=== PATIENT | male | born 1985 | race Two or more races ===

== ENCOUNTER 2016-04-21 01:00 | Emergency (ER) | payer SELFPAY ==
[~2016-04-21] VITALS: Ht 165.1 cm; Wt 54.4 kg
[2016-04-21 01:12] VITALS: BP 174/77
[2016-04-21] MEDS ORDERED: IV NORMAL SALINE 1000ML BAG 1,000 ML IV SCH (01:30)
[2016-04-21 01:53] LABS: BILIRUBIN,URINE NEGATIVE (NEG); GLUCOSE,URINE NEGATIVE (NEG); NITRITE,URINE NEGATIVE (NEG); PH,URINE 6.5; PROTEIN,URINE NEGATIVE (NEG-TRACE); UROBILINOGEN,URINE 0.2 mg/dL (0.2 mg/dL)
[2016-04-21 01:54] LABS: BASO % 0 % (0-3); EOS % 1 % (0-3); HEMOGLOBIN 12.2 g/dL (13.0-17.5); LYMPH # 3.4 x10^3/uL (1.0-4.8); LYMPH % 30 % (24-48); MEAN CORPUSCULAR HEMOGLOBIN 33 pg (25-35); MEAN CORPUSCULAR HGB CONC 33 g/dL (31-37); MEAN CORPUSCULAR VOLUME 99 fL (79-100); MONO % 10 % (0-9); NEUT % 59 % (31-73); PLATELET COUNT 221 x10^3/uL (140-400); RED BLOOD COUNT 3.74 x10^6/uL (4.30-5.70); RED CELL DISTRIBUTION WIDTH 13.3 % (11.5-14.5); WHITE BLOOD COUNT 11.1 x10^3/uL (4.0-11.0)
[2016-04-21] MEDS ORDERED: FAMOTIDINE 20 MG/2 ML VIAL IVP ONE (02:00)
[2016-04-21] MEDS ORDERED: CONTRAST GIVEN MC PRN (02:00)
[2016-04-21] MEDS ORDERED: ONDANSETRON PF 4 MG/2 ML VIAL. IV ONE (02:00)
[2016-04-21 02:03] LABS: BACTERIA,URINE 0 /HPF (0-FEW); SQUAMOUS EPITHELIAL CELL,UR OCC /LPF; WBC,URINE 0 /HPF (0-4)
[2016-04-21] MEDS: HYDROMORPHONE 2 MG/ML VIAL. IV/SQ PRN ×2 (02:06→02:42)
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
[2016-04-21 02:08] LABS: CALCIUM 9.1 mg/dL (8.5-10.1); GFR 87.7; POTASSIUM 3.5 mmol/L (3.5-5.1)
[2016-04-21 02:12] LABS: ALBUMIN/GLOBULIN RATIO 0.9 (1.0-1.7); TOTAL BILIRUBIN 0.2 mg/dL (0.2-1.0); TOTAL PROTEIN 8.3 g/dL (6.4-8.2)
[2016-04-21] MEDS ORDERED: IOHEXOL 300 MG/ML 75 ML VIAL IV ONE (02:15)
--- NOTE | 2016-04-21 02:49 | RAD ---
PQRS STATEMENT One or more of the following individualized dose reduction techniques were utilized for this study: 1.Automated exposure control. 2.Adjustment of the mA and/orkVaccording to patient size. 3.Use of iterative reconstruction technique. Indication:llq pain x tonight; Omni 300, 75ml Reason: severe left lower quadrant abdominal pain / Spl. Instructions: / History: Comparison: CT abdomen pelvis from June 08, 2014 Technique: multiple contiguous axial images were obtained through the abdomen and pelvis after intravenous administration of iodinated contrast. Coronal and sagittal reformations were created. Findings: The lung bases are clear. The heart size is normal. The liver is normal in size with no focal lesions identified. The gallbladder is nondistended. The pancreas and adrenal glands are unremarkable. The spleen is absent. The left kidney is markedly atrophic. The right kidney is unremarkable. The abdominal aorta is normal in caliber. An IVC filter is in place. The appendix is not identified. Urinary bladder is within normal limits. Small bowel loops are normal in caliber. No destructive osseous lesions are seen. Impression: - No ascites or inflammatory mass. - Absence of the spleen. - Marked atrophy of the left kidney. Electronically signed by: Shay Vásquez (Apr 21, 2016 02:48:12)
[2016-04-21] MEDS ORDERED: DIPHENHYDRAMINE 50 MG/ML VIAL IVP ONE (03:15)
[2016-04-21] MEDS ORDERED: ONDA4TAB10 PO (03:28)
[2016-04-21] MEDS ORDERED: HYDR-971 PO (03:28)
== END 2016-04-21 03:56 | disposition home or self-care (01) ==
LOC: ER 01:00
DX: R10.32 Left lower quadrant pain (principal); G89.29 Other chronic pain; Z90.410 Acquired total absence of pancreas; Z98.890 Other specified postprocedural states; Z88.5 Allergy status to narcotic agent
CPT/HCPCS: 36415; 74177; 80053; 81001; 83690; 85027; 96361; 96374; 96375; 96376; 99285; J1170; J1200; J2405; J7030; Q9967; S0028